=== PATIENT | male | born 1970 | race Caucasian/White ===

== ENCOUNTER → 2018-05-05 | Day surgery (SDC) | payer OTHER ==
[~2018-05-05] MED LIST: Benzocaine 20% Oral Spray 59.2 ML Canister MUCMEM ONE; Lactated Ringers 1,000 ML IV SCH; Meperidine PF 25 MG/ML Syringe IV ONE; Midazolam 1 MG/ML 2 ML SDV IV ONE
--- NOTE | 2018-05-05 13:36 | OR ---
DATE OF OPERATION: 05/05/2018 PREOPERATIVE DIAGNOSIS: POSTPRANDIAL ABDOMINAL PAIN AND DYSPEPSIA. POSTOPERATIVE DIAGNOSIS: 1. GASTRITIS, DUODENITIS. 2. REFLUX ESOPHAGITIS WITH EARLY SCHATZKI'S RING. SURGEON: Sanjay Nielsen MD PROCEDURE: EGD WITH BIOPSIES X4, LAKE WITH POLYP REMOVAL WITH FORCEPS POLYP REMOVAL X1. ANESTHESIA: Conscious sedation with a total of 50 mg Demerol, 4 mg Versed with continuous O2 sat monitoring and nurse assist. The patient's O2 sat stayed above 90% for the entire procedure. COMPLICATIONS: None. SPECIMEN: 1. Duodenal biopsy x1. 2. Antral biopsy x2. 3. LAKE. 4. Fundal polyp. 5. EG junction biopsy x1. FINDINGS: 1. Full-length EGD. 2. [id number] active gastritis of the antrum and duodenum, duodenal bulb. 3. Benign adenomatous polyp in the upper fundus. 4. Reflux esophagitis with early Schatzki's ring. RECOMMENDATIONS: The patient will be placed on appropriate therapy including Dexilant and Carafate as he has failed Protonix. We will follow up for pathology reports and clinical management in 2 weeks. INDICATIONS: Mr. Heart has been having persistent issues with epigastric pain, postprandial bloating, etc. He has failed medical treatment and we elected to proceed with diagnostic EGD. DESCRIPTION OF PROCEDURE: The patient was prepped and draped, placed in the left lateral decubitus position with the head of the bed elevated. A lubricated Olympus gastroscope was inserted over a bit and advanced to cricopharyngeus area, and with patient swallow, easily intubated into the esophagus. The esophageal lining was benign until its most distal portion. The Z-line is crisp and sharp around 37 to 38 cm. There was an early Schatzki's ring present, nonobstructing, associated with some reflux esophagitis. Biopsy of the most affected area was taken. No signs of any Marsh's changes. No gross hernia present. The scope was advanced into the stomach through the pylorus into the second portion of the duodenum. The second portion of duodenum was benign. Both the antrum and the duodenal bulb show diffuse inflammation consistent with gastritis/duodenitis. Biopsy of the duodenum and the distal antrum x2 were taken. There appears to be some heterotopic gastric tissue in the duodenal bulb as well. CLOtest was then obtained. With retroflexion, the upper fundus and cardia appeared benign. There was 1 small adenomatous polyp in the mid to upper fundus which was removed easily with a cold forceps. Air was then suctioned from the stomach and the scope removed without complication. ABIMBOLA/MARITZA /[id number]
== END ==
LOC: CC.SDS 10:51
PROVIDERS: ATTEND Family Medicine
DX: K29.50 Unspecified chronic gastritis without bleeding (principal); K29.80 Duodenitis without bleeding; K21.0 Gastro-esophageal reflux disease with esophagitis; K22.2 Esophageal obstruction; K31.7 Polyp of stomach and duodenum; I10 Essential (primary) hypertension; E78.5 Hyperlipidemia, unspecified; Z79.899 Other long term (current) drug therapy
CPT/HCPCS: 43239; 87081; J2175; J2250; J7120

== ENCOUNTER → 2021-02-27 | Day surgery (SDC) | payer OTHER ==
[~2021-02-27] MED LIST changes: -Benzocaine 20% Oral Spray 59.2 ML Canister MUCMEM ONE; +Ketamine 200 MG/20 ML MDV ONE; -Meperidine PF 25 MG/ML Syringe IV ONE; -Midazolam 1 MG/ML 2 ML SDV IV ONE; +Midazolam 1 MG/ML 2 ML SDV ONE; +Propofol 200 MG/20 ML SDV ONE; +fentaNYL 100 MCG/2 ML SDV ONE
--- NOTE | 2021-02-27 13:57 | OR ---
DATE OF OPERATION: 02/27/2021 PREOPERATIVE DIAGNOSIS: 1. ABDOMINAL BLOATING. 2. ALTERED BOWEL HABITS. POSTOPERATIVE DIAGNOSIS: 1. ABDOMINAL BLOATING. 2. ALTERED BOWEL HABITS. SURGEON: Sanjay Nielsen MD PROCEDURE: DIAGNOSTIC COLONOSCOPY WITH RANDOM BIOPSIES X5, FORCEPS POLYP REMOVAL X1. ANESTHESIA: MAC. COMPLICATIONS: None. SPECIMEN: 1. Random colon biopsies from terminal ileum to rectum x5. 2. Small sessile polyp, mid sigmoid colon, approximately 3 mm. FINDINGS: 1. Full-length diagnostic colonoscopy. 2. Minimal sigmoid diverticulosis. 3. Small sessile polyp in sigmoid colon. 4. No obvious signs of colitis. RECOMMENDATIONS: Medical followup pending pathology reports. Followup colonoscopy in 5 years given polyp removal. INDICATIONS: Mr. Heart has been having on and off again issues with his bowels including abdominal pain and bloating. He, once in a while, does have some altered bowels in the form of diarrhea. We elected to proceed with a diagnostic scope. DESCRIPTION OF PROCEDURE: The patient was prepped and draped, placed in the left lateral decubitus position. A lubricated Olympus colonoscope was inserted and easily advanced to the cecum. Direct visualization of ileocecal valve and appendiceal orifice was accomplished. The bowel prep was excellent. Upon withdrawal, the cecal pouch itself looked benign. We did intubate into the terminal ileum. It looked unremarkable. We did do a random biopsy there and for the most part, the entire colon showed no signs of any colitis, bleeding sites, vascular abnormalities. Random biopsies were done at the terminal ileum, ascending, transverse, sigmoid, and rectal vault. The patient did have a few scattered diverticula in the sigmoid area, but minimal. There was one small polyp around 42 cm that was removed with forceps biopsy x2 in its entirety. Otherwise, no other polyps or lesions. The rectal vault was benign. Retroflexion showed no perianal lesions. Air was suctioned. Scope was removed without complication. ABIMBOLA/MARITZA /[id number]
== END ==
LOC: CC.SDS 10:40
PROVIDERS: ATTEND Family Medicine
DX: D12.5 Benign neoplasm of sigmoid colon (principal); K52.9 Noninfective gastroenteritis and colitis, unspecified; K57.30 Diverticulosis of large intestine without perforation or abscess without bleeding; E78.5 Hyperlipidemia, unspecified; I10 Essential (primary) hypertension; K21.9 Gastro-esophageal reflux disease without esophagitis; R73.01 Impaired fasting glucose; G47.30 Sleep apnea, unspecified; E66.9 Obesity, unspecified; Z68.30 Body mass index [BMI] 30.0-30.9, adult; Z01.812 Encounter for preprocedural laboratory examination; Z20.822 Contact with and (suspected) exposure to COVID-19
CPT/HCPCS: 00812; J2250; J2704; J3010; J7120; U0002

== ENCOUNTER 2023-10-27 10:20 | Emergency (ER) | payer OTHER ==
[2023-10-27] MEDS: Lidocaine 1% with EPINEPHrine 1:100,000 10 ML MDV INJECT ONE (11:17)
[2023-10-27] MEDS: Bacitracin Oint 1 GM U/D Packet TOP ONE (11:17)
[2023-10-27] MEDS: Diphtheria/Tetanus Toxoids,Adult (Td) 0.5 ML SDV IM ONE (11:20)
== END 2023-10-27 11:20 | disposition home or self-care (01) ==
LOC: CC.ED 10:20
DX: S61.011A Laceration without foreign body of right thumb without damage to nail, initial encounter (principal); Z79.899 Other long term (current) drug therapy; W27.8XXA Contact with other nonpowered hand tool, initial encounter
CPT/HCPCS: 12001; 73140-F5; 90471; 90714; 99283-25; J3490

== ENCOUNTER 2024-08-11 12:46 | Emergency (ER) | payer OTHER ==
[2024-08-11] MEDS: Lidocaine 1% with EPINEPHrine 1:100,000 10 ML MDV INJECT ONE (13:14)
[2024-08-11] MEDS: Bacitracin Oint 1 GM U/D Packet TOP ONE (13:15)
== END 2024-08-11 13:40 | disposition home or self-care (01) ==
LOC: CC.ED 12:46
DX: S51.812A Laceration without foreign body of left forearm, initial encounter (principal); Z79.899 Other long term (current) drug therapy; W31.2XXA Contact with powered woodworking and forming machines, initial encounter
CPT/HCPCS: 12002; 99282